=== PATIENT | female | born 1965 | race Caucasian/White ===

== ENCOUNTER 2019-12-17 11:05 | Day surgery (SDC) | payer BC ==
[2019-12-16 10:20] LABS: BASOPHILS # (AUTO) 0.03 x10^3/uL (0-0.1); BASOPHILS % (AUTO) 0 % (0-1); EOSINOPHILS # (AUTO) 0.12 x10^3/uL (0-0.4); EOSINOPHILS % (AUTO) 1 % (1-7); LYMPHOCYTES # (AUTO) 2.63 x10^3/uL (1-3.4); LYMPHOCYTES % (AUTO) 28 % (22-44); MD NO; MEAN CORPUSCULAR HEMOGLOBIN 28.9 pg (27.0-34.8); MEAN CORPUSCULAR HGB CONC 32.7 g/dL (32.4-35.8); MEAN CORPUSCULAR VOLUME 88.5 fL (80-100); MEAN PLATELET VOLUME 7.9 fL (7.4-10.4); MONOCYTES # (AUTO) 0.55 x10^3/uL (0.2-0.8); MONOCYTES % (AUTO) 6 % (2-9); NEUTROPHILS # (AUTO) 6.04 x10^3/uL (1.8-6.8); NEUTROPHILS % (AUTO) 65 % (42-75); PLATELET COUNT 330 x10^3/uL (130-400); RED BLOOD COUNT 4.68 x10^6/uL (3.82-5.3); RED CELL DISTRIBUTION WIDTH 14.1 % (9.6-15.2)
[2019-12-16 10:33] LABS: ALANINE AMINOTRANSFERASE 23 U/L (12-78); ALBUMIN 3.7 g/dL (3.4-5.0); ANION GAP 7 mmol/L (5-15); CALCIUM 8.4 mg/dL (8.5-10.1); CHLORIDE 111 mmol/L (98-107); CREATININE 0.78 mg/dL (0.55-1.02)
[2019-12-16 10:36] LABS: ALKALINE PHOSPHATASE 67 U/L (45-117); BILIRUBIN,TOTAL 0.8 mg/dL (0.2-1.0); TOTAL PROTEIN 7.1 g/dL (6.4-8.2)
[~2019-12-17] VITALS: Ht 180.3 cm; Wt 106.7 kg
[~2019-12-17 11:05] MED LIST: ISOPROTERENOL 0.2MG/ML, 5ML ONE; None at this Time
[2019-12-17] MEDS ORDERED: LIDOCAINE 1%, 20ML ONE (12:55)
[2019-12-17] MEDS ORDERED: LIDOCAINE 1%-EPI 1:100K, 20ML ONE (12:55)
[2019-12-17] MEDS ORDERED: SODIUM BICARBONATE 4.2%, 5ML ONE (12:55)
[2019-12-17 13:24] VITALS: BP 131/82
[2019-12-17] MEDS ORDERED: MIDAZOLAM 1 MG/ML, 2ML ONE (14:17)
[2019-12-17] MEDS ORDERED: FENTANYL PF 250 MCG/5ML ONE (14:17)
[2019-12-17] MEDS ORDERED: ACETAMINOPHEN 500 MG TABLET PO ONE (15:00)
[2019-12-17] MEDS ORDERED: FAMOTIDINE 20 MG TABLET PO ONE (15:00)
[2019-12-17] MEDS ORDERED: GABAPENTIN 300 MG CAPSULE PO ONE (15:00)
[2019-12-17] MEDS ORDERED: ACETAMINOPHEN 500 MG TABLET ONE (15:04)
[2019-12-17] MEDS ORDERED: GABAPENTIN 300 MG CAPSULE ONE (15:05)
[2019-12-17] MEDS ORDERED: FAMOTIDINE 20 MG TABLET ONE (15:06)
[2019-12-17] MEDS ORDERED: BUPIVACAINE/PF 0.5% ONE (15:08)
[2019-12-17] MEDS ORDERED: ISOSULFAN BLUE 10 MG/ML, 5ML IV ONE (15:08)
[2019-12-17] MEDS ORDERED: ROCURONIUM 10 MG/ML,10ML ONE (15:28)
[2019-12-17] MEDS ORDERED: PROPOFOL 10 MG/ML, 20ML ONE (15:28)
[2019-12-17] MEDS ORDERED: DEXAMETHASONE 4 MG/ML, 1ML ONE ×2 (15:35)
[2019-12-17] MEDS ORDERED: CEFAZOLIN 1,000 MG ONE ×2 (15:36)
[2019-12-17] MEDS ORDERED: EPINEPHRINE 1 MG/ML, 1ML INFIL ONE (15:56)
[2019-12-17] MEDS ORDERED: MEPERIDINE/PF 25MG/ML,1ML IVPush PRN (16:30)
[2019-12-17] MEDS ORDERED: hydrALAzine 20 MG/ML, 1ML IV PRN (16:30)
[2019-12-17] MEDS ORDERED: LABETALOL 5MG/ML, 20ML IV PRN (16:30)
[2019-12-17] MEDS ORDERED: OXYcodone 5 MG/5 ML ORAL.SOL UDC PO PRN (16:30)
[2019-12-17] MEDS ORDERED: PROMETHAZINE 25 MG/ML, 1ML IV PRN (16:30)
[2019-12-17] MEDS ORDERED: ONDANSETRON 2MG/ML, 2ML IV PRN (16:30)
[2019-12-17] MEDS ORDERED: OXYcodone 5 MG/5 ML ORAL.SOL UDC ONE (17:20)
[2019-12-17] MEDS ORDERED: FENTANYL PF 100 MCG/2ML ONE ×2 (17:20→17:54)
[2019-12-17] MEDS: FENTANYL PF 100 MCG/2ML IV PRN ×4 (17:24→18:10)
[2019-12-17] MEDS ORDERED: HYDROmorphone 1 MG/ML, 1ML INJ ONE ×2 (17:34→17:48)
[2019-12-17] MEDS: HYDROmorphone 1 MG/ML, 1ML INJ IVPush PRN ×4 (17:40→18:05)
== END 2019-12-17 20:40 | disposition home or self-care (01) ==
LOC: CFH 11:05 → EDSTATUS 15:00 → OUT 20:40
PROVIDERS: ATTEND Surgery
DX: D05.12 Intraductal carcinoma in situ of left breast (principal); N60.12 Diffuse cystic mastopathy of left breast; N60.11 Diffuse cystic mastopathy of right breast; E66.01 Morbid (severe) obesity due to excess calories; Z68.33 Body mass index [BMI] 33.0-33.9, adult; Z72.89 Other problems related to lifestyle; Z85.828 Personal history of other malignant neoplasm of skin; Z98.890 Other specified postprocedural states
CPT/HCPCS: 19285; 19301; 19318; 19366; 36415; 38525; 38792; 77065; 80053; 81025; 85025; 93005; A9541; J0171; J0690; J1100; J1170; J2250; J2405; J3010; J3490; 88305; 88307; 88329; 88333; C1729; J2704

== ENCOUNTER 2020-01-07 07:07 | Outpatient (CLI) | payer BC ==
[~2020-01-07 07:07] MED LIST changes: -ISOPROTERENOL 0.2MG/ML, 5ML ONE
== END 2020-01-07 23:59 | disposition home or self-care (01) ==
LOC: ROC 07:07
PROVIDERS: ATTEND Radiology Radiation Oncology
DX: C50.912 Malignant neoplasm of unspecified site of left female breast (principal)
CPT/HCPCS: 99214; G0463

== ENCOUNTER 2020-04-13 07:45 | Outpatient (CLI) | payer BC | END 2020-04-13 23:59 | disposition home or self-care (01) | LOC: ROC 07:45 | PROVIDERS: ATTEND Radiology Radiation Oncology | DX: C50.419 Malignant neoplasm of upper-outer quadrant of unspecified female breast (principal) | CPT/HCPCS: 99213; G0463 ==

== ENCOUNTER → 2020-06-08 | Outpatient (CLI) | payer BC | END | disposition home or self-care (01) | LOC: CFH 08:02 | PROVIDERS: ATTEND Radiology Radiation Oncology | DX: C50.419 Malignant neoplasm of upper-outer quadrant of unspecified female breast (principal); Z85.3 Personal history of malignant neoplasm of breast | CPT/HCPCS: 77065; G0279 ==

== ENCOUNTER 2020-09-01 08:11 | Outpatient (CLI) | payer BC | END 2020-09-01 23:59 | disposition home or self-care (01) | LOC: ROC 08:11 | PROVIDERS: ATTEND Radiology Radiation Oncology | DX: Z08 Encounter for follow-up examination after completed treatment for malignant neoplasm (principal); Z85.3 Personal history of malignant neoplasm of breast | CPT/HCPCS: 99213; G0463 ==

== ENCOUNTER → 2020-11-10 | Outpatient (CLI) | payer BC | END | disposition home or self-care (01) | LOC: CFH 09:31 | PROVIDERS: ATTEND Radiology Radiation Oncology | DX: C50.419 Malignant neoplasm of upper-outer quadrant of unspecified female breast (principal) | CPT/HCPCS: 77066; G0279 ==